=== PATIENT | male | born 1955 | race Caucasian/White ===

== ENCOUNTER 2016-08-22 02:06 | Emergency (ER) | payer MEDICARE, MEDICAID ==
[~2016-08-22] VITALS: Ht 170.2 cm; Wt 91.0 kg
[~2016-08-22 02:06] MED LIST: AEROI INH; ALBU17I INH; AMBI10TA PO; CLOP75 PO; COMBAER INH; LISI-360 PO; METF-324 PO; METO25 PO; METO50TA OR; NIAC500 PO; NICO21DI24 TD; OMEP20TA OR; SIMV40TA OR; VARE1 PO; VARE1PAK3 PO; VICO7.5T PO; XANA2TAB2 PO
[2016-08-22 02:10] VITALS: BP 137/77; PULSE 80; RESP 16; TEMP 100.6; O2SAT 97
[2016-08-22] MEDS ORDERED: OMEP20TA PO (02:26)
[2016-08-22] MEDS ORDERED: METF1000 PO (02:26)
[2016-08-22] MEDS ORDERED: PLAV75TA29 PO (02:26)
[2016-08-22] MEDS ORDERED: LISI10TA3 PO (02:26)
[2016-08-22] MEDS ORDERED: NIAC500T5 PO (02:26)
[2016-08-22] MEDS ORDERED: ALPR2TAB3 PO (02:26)
[2016-08-22] MEDS ORDERED: SIMV40TA PO (02:26)
[2016-08-22] MEDS ORDERED: METO25TA3 PO (02:26)
[2016-08-22] MEDS ORDERED: AMBI10TA PO (02:26)
--- NOTE | 2016-08-22 02:47 | PD ---
HPI Chief Complaint: Back/ Neck Pain or Injury Time Seen by Provider: 02:40 Travel History International Travel<30 days: No Contact w/Intl Traveler<30days: No Traveled to known affect area: No History of Present Illness HPI 61-year-old white male presents to emergency department for evaluation of lower back pain with radiation into his legs. This is a patient who states that he was just seen at [facility] yesterday at 11:00 in the afternoon. He states that he had tripped and fell at home striking his left ribs. He had called the ambulance who brought him to the emergency department. He states that they had x-rayed his ribs. He states that when he was being discharged he mention the fact that he was having lower back pain with radiation into his legs. He states that the ER physician told him to continue to take the medication he is given a and he was discharged. He states that he picked up his prescription for tramadol around 6:30 in the evening. He went to bed. When he woke up this morning he states that he had worsening pain and decided to take the ambulance to [place] to get a second opinion. He states that they did not image his back. The patient reports having sciatica in the past not to this degree. The patient denies any focal numbness. He does have radiation of pain from his left lower back into his left leg and at times it radiates also into his right leg. Worse with bending and movement. He states the pain is moderate but can be severe. Some relief of discomfort with remaining still. He states the pain in his ribs is unchanged. He denies any shortness of breath or wheezing. Patient's Accu-Chek is 112. PFSH Past Medical History AAA: Yes (STATES IT WAS FOUND IN LULING) Arthritis: No Asthma: Yes Autoimmune Disease: No Blood Disorders: No Anxiety: No Depression: No Heart Rhythm Problems: No Cancer: No Cardiac Catheterization: Yes Cardiovascular Problems: Yes High Cholesterol: Yes Chemotherapy: No Chest Pain: No Congestive Heart Failure: No COPD: No Cerebrovascular Accident: No Diabetes: No Diminished Hearing: No Endocrine: No GERD: No Glaucoma: No Genitourinary: No Headaches: No Hepatitis: No Hiatal Hernia: No Hypertension: Yes Immune Disorder: No Implanted Vascular Access Dvce: Yes Kidney Stones: No Musculoskeletal: Yes Neurologic: No Psychiatric: No Reproductive: No Respiratory: Yes Myocardial Infarction: Yes (X 6) Radiation Therapy: No Renal Failure: No Seizures: No Sickle Cell Disease: No Sleep Apnea: No Thyroid Disease: No Ulcer: No Tetanus Vaccination: Unknown Influenza Vaccination: No PNEUMOCCOCAL Vaccine (Year): 1 Past Surgical History Abdominal Surgery: No AICD: No Body Medical Devices: HARDWARE IN RIGHT FOOT Cardiac Surgery: No Coronary Stent: Yes (ABOUT 13 ) Ear Surgery: No Endocrine Surgery: No Eye Surgery: No Genitourinary Surgery: No Gynecologic Surgery: No Joint Replacement: Yes (RT SHOULDER) Neurologic Surgery: Yes (POST CERVICAL FUSION) Oral Surgery: No Pacemaker: No Thoracic Surgery: No Social History Alcohol Use: No (1-2 IN THE LAST 4 WEEKS) Tobacco Use: Yes (2 PPD X 30 YRS) Substance Use: No Allergies-Medications (Allergen,Severity, Reaction): Coded Allergies: No Known Allergies (Verified , 08/22/16) Reported Meds & Prescriptions Reported Meds & Active Scripts Active Reported Ambien (Zolpidem Tartrate) 10 Mg Tab 10 Mg PO HS PRN Simvastatin 40 Mg Tab 40 Mg PO HS Omeprazole 20 Mg Tab 20 Mg PO DAILY Niacin 500 Mg Tab 500 Mg PO DAILY Metoprolol Tartrate 25 Mg Tab 25 Mg PO BID Metformin (Metformin HCl) 1,000 Mg Tab 1,000 Mg PO BIDPC With meals Lisinopril 10 Mg Tab 10 Mg PO DAILY Plavix (Clopidogrel Bisulfate) 75 Mg Tab 75 Mg PO DAILY Alprazolam 2 Mg Tab 2 Mg PO TID PRN Review of Systems Except as stated in HPI: all other systems reviewed are Neg Physical Exam Narrative GENERAL: Well-developed, well-nourished in no acute distress. Nontoxic appearing. HEAD: Normocephalic, atraumatic. EYES: Pupils equal round and reactive. Extraocular motions intact. No scleral icterus. No injection or drainage. ENT: TMs clear without erythema. The external auditory canals clear. Nose: clear . Posterior pharynx is pink and moist. No tonsillar edema or exudate. Uvula midline. Airway patent. NECK: Trachea midline.Supple, nontender, moves head freely. No central bony tenderness or spasm. CARDIOVASCULAR: Regular rate and rhythm without murmurs, gallops, or rubs. RESPIRATORY: Clear to auscultation. Breath sounds equal bilaterally. No wheezes , rales, or rhonchi. CHEST: Tender left mid axillary rib without deformity or crepitance. No ecchymosis. No retractions or use of accessory muscles. GASTROINTESTINAL: Abdomen soft, non-tender, nondistended. No hepato-splenomegaly , or palpable masses. No guarding. EXTREMITIES: No clubbing, cyanosis, or edema. No joint tenderness, effusion, or edema noted. Patient has old chronic deformities of both ankles and feet from prior surgery. Patient has intact distal pulses and sensation. BACK: No central bony tenderness. Patient has bilateral paraspinal tenderness worse on the left side into the left buttocks. No gross spasm. No saddle anesthesia. Without deformity or crepitance. No flank tenderness. Data Data Last Documented VS Vital Signs Date Time Temp Pulse Resp B/P Pulse Ox O2 Delivery O2 Flow Rate FiO2 08/22/16 02:10 100.6 80 16 137/77 97 Room Air Orders Blood Glucose (08/22/16 02:39) Spine, Lumbar - Ltd (Ap & Lat) (08/22/16 02:39) Ct Thor Spine W/O Contrast (08/22/16 03:46) Ct Lumb Spine W/O Contrast (08/22/16 03:46) MDM Medical Decision Making Medical Screen Exam Complete: Yes Emergency Medical Condition: Yes Medical Record Reviewed: Yes Interpretation(s) Last 24 [address] Impressions [address] 08/22/16 0346 Signed Impressions: Service Date/Time: August 04:09 - CONCLUSION: 1. Old compression fracture deformities of T11 and T12. No resulting central canal narrowing. 2. Broad-based disc osteophyte complexes at T7-8 and T8-9 resulting in mild central canal narrowing and mild bilateral neural foraminal narrowing at T8-9. David Walters MD Lumbar Spine X-Ray 08/22/16 0239 Signed Impressions: Service Date/Time: August 03:03 - CONCLUSION: 1. Moderate severity degenerative findings. 2. Age-indeterminate T12 vertebral body compression fracture. 3. Possible mild L2 vertebral body compression fracture. David Walters MD Differential Diagnosis MDM: High Differential diagnoses: Fracture, sprain, strain, dislocation, contusion, neurovascular injury Narrative Course BDL 112. The patient has declined any medications for pain at this time. He states that he merely would like to know what is wrong with him. He states that the emergency department at [facility] did not address his back pain at the time of discharge. X-rays of the lumbar spine reveal degenerative changes with disc space narrowing and osteophytes. I've explained to the patient that his pains are associated with radicular nerve root impingement from degenerative disc disease. The patient states that he knows that he has degenerative disc disease but he thinks we are wrong that his pains are associated with this. The patient states that he does not want to take any other medications. The patient is medically stable for discharge. The patient had been offered medication but he has declined this. The official radiology report shows questionable age-related compression fracture of the T-spine. We will obtain CT scans of the thoracic and lumbar spine. Thoracic and lumbar spine CT showed no acute compression. He has significant degenerative changes. The patient's medically stable for discharge. The patient is once again asked if he would like a thing for discomfort. The patient following states that he will take Tylenol with codeine. Back pain with lumbar radiculopathy, left rib contusion, fall Diagnosis Primary Impression: Lumbar back pain with radiculopathy affecting left lower extremity Additional Impressions: Lumbar back pain with radiculopathy affecting right lower extremity Contusion of rib on left side Qualified Code: S20.212A - Contusion of rib on left side, initial encounter fall Fall Qualified Code: W19.XXXA - Fall, initial encounter Patient Instructions: General Instructions Additional Instructions: Rest. Ice for the next 3 days followed by heat . Continue your home medications. Deep breaths every half hour. Call your doctor in the morning for appointment. Follow-up with a primary care doctor in 3-5 days. Return to the ER for emergencies. Med/Other Pt SpecificInfo: No Change to Meds Disposition: 01 DISCHARGE HOME Condition: Stable Niall Lloyd Aug 22, 2016 02:47
--- NOTE | 2016-08-22 03:40 | RADRPT ---
EXAM DATE/TIME: 08/22/2016 03:03 [facility] COMPARISON: No previous studies available for comparison. INDICATIONS : Fall. Low back pain down right leg. MEDICAL HISTORY : None. SURGICAL HISTORY : None. ENCOUNTER: Initial ACUITY: 2 days PAIN SCORE: 8/10 LOCATION: Bilateral Paraspinal FINDINGS: 3 views of the lumbar spine. Moderate severity S-shaped thoracolumbar scoliosis. Mild anterior wedge deformity of the T12 vertebral body indicating age indeterminate compression fracture deformity. Mini mal grade 1 retrolisthesis L1 on L2. Moderate severity osteophyte formation and intervertebral disc n arrowing at L4-5. Mild superior endplate concavity of L2 indicating possible age indeterminate mild c ompression fracture deformity. Moderate severity facet arthrosis at L4-5 and L5-S1. CONCLUSION: 1. Moderate severity degenerative findings. 2. Age-indeterminate T12 vertebral body compression fracture. 3. Possible mild L2 vertebral body compression fracture. David Walters MD on August 22, 2016 at 3:36 Board Certified Radiologist. This report was verified electronically.
--- NOTE | 2016-08-22 04:50 | RADRPT ---
EXAM DATE/TIME: 08/22/2016 04:09 [facility] COMPARISON: No previous studies available for comparison. INDICATIONS : Trauma. Fall. Evaluate fractures. RADIATION DOSE: 30.33 CTDIvol (mGy) ; Combined studies - Thoracic Spine/Lumbar Spine MEDICAL HISTORY : None SURGICAL HISTORY : Right shoulder surgery ENCOUNTER: Initial ACUITY: 2 days PAIN SCALE: 10/10 LOCATION: thoracic TECHNIQUE: Volumetric scanning of the thoracic spine was performed. Multiplanar reconstructions in the sagittal , coronal and oblique axial planes were performed. Using automated exposure control and adjustment o f the mA and/or kV according to patient size, radiation dose was kept as low as reasonably achievable to obtain optimal diagnostic quality images. DICOM format image data is available electronically f or review and comparison. FINDINGS: Mild anterior wedge deformities of the T11 and T12 vertebral body with morphologies favoring chronic findings. Bone alignment within normal limits. No acute fracture identified in the thoracic spine. Ol d right 11th rib fracture noted. Surgical internal lower cervical spine. Mild arthritic findings at t he costovertebral junctions of every level of the thoracic spine. Minimal broad-based disc osteophyte complex at T7-8 but central canal diameter and neural foraminal d iameters within normal limits at this level. Moderate sized broad-based disc osteophyte complex at T8 -9 resulting in mild central canal narrowing and mild bilateral neural foraminal narrowing. Central c anal and neural foraminal diameters within normal limits set all other thoracic levels. CONCLUSION: 1. Old compression fracture deformities of T11 and T12. No resulting central canal narrowing. 2. Broad-based disc osteophyte complexes at T7-8 and T8-9 resulting in mild central canal narrowing a nd mild bilateral neural foraminal narrowing at T8-9. David Walters MD on August 22, 2016 at 4:40 Board Certified Radiologist. This report was verified electronically.
--- NOTE | 2016-08-22 05:07 | RADRPT ---
EXAM DATE/TIME: 08/22/2016 04:12 [facility] COMPARISON: No previous studies available for comparison. INDICATIONS : Trauma. Fall. Evaluate fractures. RADIATION DOSE: 30.33 CTDIvol (mGy) ; Combined studies - Thoracic Spine/Lumbar Spine MEDICAL HISTORY : None SURGICAL HISTORY : None. ENCOUNTER: Initial ACUITY: 2 days PAIN SCALE: 10/10 LOCATION: lumbar TECHNIQUE: Volumetric scanning of the lumbar spine was performed. Multiplanar reconstructions in the sagittal, coronal and oblique axial planes were performed. Using automated exposure control and adjustment of the mA and/or kV according to patient size, radiation dose was kept as low as reasonably achievable t o obtain optimal diagnostic quality images. DICOM format image data is available electronically for review and comparison. FINDINGS: VERTEBRAE: T11 and T12 vertebral body compression fracture deformities. Mild superior endplate concavity of L2 a nd mild inferior endplate concavity at L1 noted with prominent sclerosis adjacent to these endplates about the L1-2 intervertebral disc. Vacuum phenomenon is seen within the disc. These findings likely represent prominent bony reactive changes related to degenerative disc disease. Sclerosis also noted about the L4- 5 intervertebral disc. No acute fracture identified. T12-L1: No evidence of focal disc protrusion. Central canal normal diameter. Neural foraminal diameters withi n normal limits. L1-L2: Broad-based disc osteophyte complex and vacuum phenomenon in the disc. Mild to moderate bilateral fac et arthrosis. Moderate severity bilateral neural foraminal narrowing. Minimal grade 1 retrolisthesis L1 on L2. L2-L3: Broad-based disc bulge and mild bilateral facet hypertrophy. Central canal diameter within normal hannon its. Superimposed left lateral disc protrusion resulting in moderate left neural foraminal narrowing. L3-L4: Broad-based disc bulge. Central canal diameter within normal limits. Neural foraminal diameters withi n normal limits. L4-L5: Broad-based disc osteophyte complex and moderate to severe bilateral facet arthrosis. Mild/moderate c entral canal narrowing. Moderate bilateral neural frontal narrowing.L5-S1: Moderate to severe facet arthrosis. Central canal diameter within normal limits. Neural foraminal karla meters within normal limits. CONCLUSION: 1. Multilevel degenerative findings of the lumbar spine with [id number] central canal narrowing at L4-5. Prominent reactive bony changes at L1-2. 2. Fractures at T11 and T12 likely old. 3. 4 cm posterior right renal mass likely representing a cyst. David Walters MD on August 22, 2016 at 4:56 Board Certified Radiologist. This report was verified electronically.
[2016-08-22] MEDS ORDERED: ACETAMINOPHEN/CODEINE 300 MG/30 MG TAB PO ONE (05:45)
[2016-08-22] MEDS ORDERED: ROBA750T PO (10:12)
[2016-08-22] MEDS ORDERED: NORC5TAB PO (10:12)
[2016-08-22] MEDS ORDERED: PRED20 PO (10:13)
== END 2016-08-22 05:50 | disposition home or self-care (01) ==
LOC: NEPD 02:06
DX: M54.16 Radiculopathy, lumbar region (principal); S20.212A Contusion of left front wall of thorax, initial encounter; I10 Essential (primary) hypertension; J45.909 Unspecified asthma, uncomplicated; E78.00 Pure hypercholesterolemia, unspecified; F17.200 Nicotine dependence, unspecified, uncomplicated; W01.0XXA Fall on same level from slipping, tripping and stumbling without subsequent striking against object, initial encounter; Y92.009 Unspecified place in unspecified non-institutional (private) residence as the place of occurrence of the external cause; Z79.899 Other long term (current) drug therapy; I25.2 Old myocardial infarction; Z79.02 Long term (current) use of antithrombotics/antiplatelets
CPT/HCPCS: 72100; 72128; 72131; 96372; 99285; J1100; J1885

== ENCOUNTER 2016-08-22 08:58 | Emergency (ER) | payer MEDICARE, MEDICAID ==
[~2016-08-22 08:58] MED LIST changes: +ALPR2TAB3 PO; +LISI10TA3 PO; +METF1000 PO; +METO25TA3 PO; +NIAC500T5 PO; +OMEP20TA PO; +PLAV75TA29 PO; +SIMV40TA PO
[2016-08-22 09:08] VITALS: BP 158/83; PULSE 74; RESP 16; TEMP 99.1; O2SAT 100
[2016-08-22] MEDS ORDERED: ROBA750T PO (10:12)
[2016-08-22] MEDS ORDERED: NORC5TAB PO (10:12)
--- NOTE | 2016-08-22 10:12 | PD ---
HPI Chief Complaint: Back/ Neck Pain or Injury Time Seen by Provider: 09:54 Travel History International Travel<30 days: No Contact w/Intl Traveler<30days: No Traveled to known affect area: No History of Present Illness HPI 61-year-old male complains of low back pain and left leg pain. Patient states that he fell 2 days ago and started having left-sided rib pain and low back pain with radiation to left leg. Patient was seen at [facility] in [place] and x-rayed the left ribs was negative for acute fracture. Patient did not have x-ray done of the back at that facility. Patient came to [facility] last night for low back pain with radiation to left leg. CT scan of thoracic spine shows old compression fracture of T11-T12 and lumbar spine x-ray shows DJD changes. Patient refused any medication and was discharged. Patient states that he started having more severe pain upon discharge and requests to be seen again. Patient states the pain is severe pain started in the low back area with radiation to left leg. Patient states that the pain is worse with movement. Patient denies any focal weakness or numbness in lower extremity. Patient denies any bladder or bowel control problem. PFSH Past Medical History AAA: Yes (STATES IT WAS FOUND IN [place]) Arthritis: No Asthma: Yes Autoimmune Disease: No Blood Disorders: No Anxiety: No Depression: No Heart Rhythm Problems: No Cancer: No Cardiac Catheterization: Yes Cardiovascular Problems: Yes High Cholesterol: Yes Chemotherapy: No Chest Pain: No Congestive Heart Failure: No COPD: No Cerebrovascular Accident: No Diabetes: No Diminished Hearing: No Endocrine: No GERD: No Glaucoma: No Genitourinary: No Headaches: No Hepatitis: No Hiatal Hernia: No Hypertension: Yes Immune Disorder: No Implanted Vascular Access Dvce: Yes Kidney Stones: No Musculoskeletal: Yes Neurologic: No Psychiatric: No Reproductive: No Respiratory: Yes Myocardial Infarction: Yes (X 6) Radiation Therapy: No Renal Failure: No Seizures: No Sickle Cell Disease: No Sleep Apnea: No Thyroid Disease: No Ulcer: No Tetanus Vaccination: > 5 Years Influenza Vaccination: No PNEUMOCCOCAL Vaccine (Year): 1 Past Surgical History Abdominal Surgery: No AICD: No Body Medical Devices: HARDWARE IN RIGHT FOOT Cardiac Surgery: No Coronary Stent: Yes (ABOUT 13 ) Ear Surgery: No Endocrine Surgery: No Eye Surgery: No Genitourinary Surgery: No Gynecologic Surgery: No Joint Replacement: Yes (RT SHOULDER) Neurologic Surgery: Yes (POST CERVICAL FUSION) Oral Surgery: No Pacemaker: No Thoracic Surgery: No Social History Alcohol Use: No (1-2 IN THE LAST 4 WEEKS) Tobacco Use: Yes (2 PPD X 30 YRS) Substance Use: No Allergies-Medications (Allergen,Severity, Reaction): Coded Allergies: No Known Allergies (Verified , 08/22/16) Reported Meds & Prescriptions Reported Meds & Active Scripts Active [place] (Hydrocodone-Acetaminophen) 5-325 mg Tab 1 Tab PO Q6H PRN Robaxin (Methocarbamol) 750 Mg Tab 750 Mg PO QID Reported Ambien (Zolpidem Tartrate) 10 Mg Tab 10 Mg PO HS PRN Simvastatin 40 Mg Tab 40 Mg PO HS Omeprazole 20 Mg Tab 20 Mg PO DAILY Niacin 500 Mg Tab 500 Mg PO DAILY Metoprolol Tartrate 25 Mg Tab 25 Mg PO BID Metformin (Metformin HCl) 1,000 Mg Tab 1,000 Mg PO BIDPC With meals Lisinopril 10 Mg Tab 10 Mg PO DAILY Plavix (Clopidogrel Bisulfate) 75 Mg Tab 75 Mg PO DAILY Alprazolam 2 Mg Tab 2 Mg PO TID PRN Review of Systems General / Constitutional: No: Fever Eyes: No: Visual changes HENT: No: Headaches Cardiovascular: No: Chest Pain or Discomfort Respiratory: No: Shortness of Breath Gastrointestinal: No: Abdominal Pain Genitourinary: No: Dysuria Musculoskeletal: No: Pain Skin: No Rash Neurologic: No: Weakness Psychiatric: No: Depression Endocrine: No: Polydipsia Hematologic/Lymphatic: No: Easy Bruising Physical Exam Narrative GENERAL: Well-nourished, well-developed patient. SKIN: Focused skin assessment warm/dry. HEAD: Normocephalic. EYES: No scleral icterus. No injection or drainage. NECK: Supple, trachea midline. No JVD or lymphadenopathy. CARDIOVASCULAR: Regular rate and rhythm without murmurs, gallops, or rubs. RESPIRATORY: Breath sounds equal bilaterally. No accessory muscle use. GASTROINTESTINAL: Abdomen soft, non-tender, nondistended. MUSCULOSKELETAL: No cyanosis, or edema. BACK: Patient has mild to moderate tenderness on palpation lower lumbar area, without obvious deformity. No CVA tenderness. Negative straight leg raising. Neurologic exam normal. Data Data Last Documented VS Vital Signs Date Time Temp Pulse Resp B/P Pulse Ox O2 Delivery O2 Flow Rate FiO2 08/22/16 09:41 74 18 08/22/16 09:08 99.1 158/83 100 Orders Ketorolac Inj (Toradol Inj) (08/22/16 10:15) Dexamethasone Inj (Decadron Inj) (08/22/16 10:15) [facility] Medical Decision Making Medical Screen Exam Complete: Yes Emergency Medical Condition: Yes Medical Record Reviewed: Yes Differential Diagnosis Differential diagnosis including lumbar radiculopathy, strain, contusion, fracture, DJD, HNP. Narrative Course 61-year-old male with low back pain with radiation to the left leg. History of recent fall. CT and x-ray shows no acute process. DJD changes. Toradol 60 mg IM. Decadron 4 mg IM. Diagnosis Primary Impression: Lumbar back pain with radiculopathy affecting left lower extremity Patient Instructions: General Instructions Additional Instructions: Take medication as directed. Follow with an orthopedist. Return if worse. Accu-Chek blood sugar daily while on prednisone. Med/Other Pt SpecificInfo: Prescription(s) given Scripts Prednisone 20 Mg Tab20 Mg PO DAILY #7 TAB Prov:Genaro Strong MD 08/22/16 Hydrocodone-Acetaminophen ([place])5-325 mg Tab1 Tab PO Q6H PRN (PAIN) #20 TAB Ref 0 Prov:Genaro Strong MD 08/22/16 Methocarbamol (Robaxin)750 Mg [id number] Mg PO QID #80 TAB Prov:Genaro Strong MD 08/22/16 Disposition: 01 DISCHARGE HOME Condition: Stable Genaro Strong MD Aug 22, 2016 10:12
[2016-08-22] MEDS ORDERED: PRED20 PO (10:13)
[2016-08-22] MEDS ORDERED: KETOROLAC TROMETHAMINE 60 MG/2 ML (IM) VIAL IM ONE (10:15)
[2016-08-22] MEDS ORDERED: DEXAMETHASONE SOD PHOS 4 MG/ML VIAL IM ONE (10:15)
== END 2016-08-22 10:58 | disposition home or self-care (01) ==
LOC: NEPD 08:58
DX: M54.16 Radiculopathy, lumbar region (principal); J45.909 Unspecified asthma, uncomplicated; E78.00 Pure hypercholesterolemia, unspecified; I10 Essential (primary) hypertension; I25.2 Old myocardial infarction; F17.200 Nicotine dependence, unspecified, uncomplicated; Z79.02 Long term (current) use of antithrombotics/antiplatelets; Z79.899 Other long term (current) drug therapy
CPT/HCPCS: 96372; 99284; J1100; J1885